=== PATIENT | male | born 1955 | race Two or more races ===

== ENCOUNTER 2024-05-14 14:04 | Inpatient (IN) | payer OTHER, MEDICARE ==
[~2024-05-14] VITALS: Ht 172.7 cm; Wt 108.3 kg
--- NOTE | 2024-05-14 14:35 | ED.PDOC ---
SOB-HPI HPI Comments 69y M who presents to the ED for chief complaint of flu-like symptoms. Pt states he has been having flu-like symptoms including body aches, cough, sore throat, and chills. Pt states he has also been having abdominal pain with associated nausea, vomiting and soft stools, and states he has been unable to keep anything down since last night. Pt states his abdomen feel full and states he is feeling bloated. Pt states he has history of liver disease(cirrhosis) with prior history of liver cancer in remission. Pt denies any recent sick contacts or changes to diet. Pt in the ED, has noted BP of 148/94 in the ED with noted heart rate of 112 with all other vitals in normal range. Pt otherwise denies diarrhea, fe ronald, dysuria, hematuria, chest pain shortness of breath, headache or dizziness. Pt otherwise denies any other symptoms at this time. Chief Complaint: Nausea/Vomiting Time Seen by MD: 14:31 [facility] Care Provider: [facility] Reviewed notes: Medications, Allergies Information Source: Patient Mode of Arrival: Ambulatory Brought in by: self Severity: Moderate Timing: Hours Past Medical History PAST MEDICAL HISTORY: Cancer, High Lipids, HTN, Liver Past Medical History (Other): DVT Surgical History (Other): liver resection Family History Family History: Unknown Social History Smoker: Non-Smoker Alcohol: Heavy Drugs: Denies Drug Use Lives In: Home Constitutional: reports: chills, fatigue, weakness, others (body aches) EENTM: denies: blurred vision, double vision, ear bleeding, ear discharge, ear drainage, ear pain, ear ringing, eye pain, eye redness, hearing loss, mouth pain, mouth swelling, nasal discharge, nose bleeding, nose congestion, nose pain, photophobia, tearing, throat pain, throat swelling, voice changes, others Respiratory: reports: cough; denies: hemoptysis, orthopnea, SOB at rest, shortness of breath, SOB with excertion, stridor, wheezing, others Cardiovascular: denies: chest pain, dizzy spells, diaphoresis, Dyspnea on exertion, edema, irregular heart beat, left arm pain, lightheadedness, palpi tations, PND, syncope, others Gastrointestinal: reports: abdominal pain, nausea, vomiting; denies: abdomen distended, blood streaked bowels, constipated, diarrhea, dysphagia, difficulty swallowing, hematemesis, melena, poor appetite, poor fluid intake, rectal bleeding, rectal pain, others Genitourinary: denies: burning, dysuria, flank pain, frequency, hematuria, incontinence, penile discharge, penile sore, pain, testicle pain, testicle swelling, urgency, others Neurological: denies: dizziness, fainting, headache, left sided numbness, left sided weakness, numbness, paresthesia, pre-existing deficit, right sided numbness, right sided weakness, seizure, speech problems, tingling, tremors, weakness, others Musculoskeletal: denies: back pain, gout, joint pain, joint swelling, muscle pain, muscle stiffness, neck pain, others Integumetry: denies: bruises, change in color, change in hair/nails, dryness, laceration, lesions, lumps, rash, wounds, others Allergic/Immunocompromised: denies: Difficulty Healing, Frequent Infections, Hives, Itching, others Hematologic/Lymphatic: denies: anemia, blood clots, easy bleeding, easy bruising, swollen glands, others Endocrine: denies: excessive hunger, excessive sweating, excessive thirst, excessive urination, flushing, intolerance to cold, intolerance to heat, unexplained weight gain, unexplained weight loss, others Psychiatric: denies: anxiety, bipolar disorder, depression, hopeless, panic disorder, schizophrenia, sleepless, suicidal, others All Other Systems: Reviewed and Negative Physical Exam General Appearance: No Apparent Distress, Obese HEENT: Other (Pupils symmetric, no facial asymmetry, moist mucous membranes, no pharyngeal erythema, edema, exudate or uvular deviation) Neck: Full Range of Motion, Normal Inspection Respiratory: Lungs Clear, No Accessory Muscle Use, No Respiratory Distress, Normal Breath Sounds Cardiovascular: No JVD, Regular Rate/Rhythm Breast Exam: Deferred Gastrointestinal: Soft, Tenderness (Generalized lower abdominal) Genitalia: Deferred Pelvic: Deferred Rectal: Deferred Extremities: Normal inspection, Normal range of motion, Non-tender, Pedal edema (Trace) Neurologic: Alert, Normal Affect, Normal Mood, Other (Ambulatory without difficulty, no gross focal deficit) Cerebellar Function: NOT DONE Reflexes: NOT DONE Skin: Dry, Normal Color, Warm Lymphatic: NOT DONE Was a procedure done? Was a procedure done?: No Differential Dx Differential Diagnosis: Bronchitis, Pneumonia, Pulmonary Embolism, Respiratory Distress, URI Comments COVID, influenza, other viral syndrome, UTI, colitis, diverticular disease, gastroenteritis, among others X-Ray, Labs, Meds, VS Vital Signs Date Time Temp Pulse Resp B/P (MAP) Pulse Ox O2 Delivery O2 Flow Rate FiO2 05/14/24 18:16 116 14 102/74 05/14/24 17:40 99.4 113 18 136/83 (100) 97 99.4 05/14/24 14:10 99.4 112 18 148/94 (112) 100 Lab Test 05/14/24 18:07 05/14/24 15:41 05/14/24 14:36 05/14/24 14:13 Range/Units Influenza Type A Antigen Negative Negative Influenza Type B Antigen Negative Negative SARS-CoV-2 Antigen (Rapid) Negative NEGATIVE Troponin I High Sensitivity 3 L 4 </=54 ng/L White Blood Count 11.5 H 4.4-10.8 10^3/uL Red Blood Count 5.69 4.5-5.90 10^6/uL Hemoglobin 16.8 13.5-17.5 g/dL Hematocrit 49.2 41.0-53.0 % Mean Corpuscular Volume 86.4 80.0-100.0 fL Mean Corpuscular Hemoglobin 29.6 28.0-32.0 pg Mean Corpuscular Hemoglobin Concent 34.3 32.0-36.0 g/dL Red Cell Distribution Width 15.5 H 11.8-14.3 % Platelet Count 197 140-450 10^3/uL Mean Platelet Volume 8.0 6.9-10.8 fL Neutrophils (%) (Auto) 89.2 H 37.0-80.0 % Lymphocytes (%) (Auto) 4.0 L 10.0-50.0 % Monocytes (%) (Auto) 5.3 0.0-12.0 % Eosinophils (%) (Auto) 1.0 0.0-7.0 % Basophils (%) (Auto) 0.5 0.0-2.0 % Neutrophils # (Auto) 10.3 H 1.6-8.6 10 ^3/uL Lymphocytes # (Auto) 0.5 0.4-5.4 10 ^3/uL Monocytes # (Auto) 0.6 0-1.3 10 ^3/uL Eosinophils # (Auto) 0.1 0-0.8 10 ^3/uL Basophils # (Auto) 0.1 0-0.2 10 ^3/uL Nucleated Red Blood Cells 0.0 % Sodium Level 140 136-145 mmol/L Potassium Level 4.7 3.5-5.1 mmol/L Chloride Level 107 98-107 mmol/L Carbon Dioxide Level 23 20-31 mmol/L Anion Gap 10 5-15 Blood Urea Nitrogen 17 9-23 mg/dL Creatinine 0.84 0.700-1.30 mg/dL Glomerular Filtration Rate Calc 95 >90 mL/min BUN/Creatinine Ratio 20.2 H 10.0-20.0 Serum Glucose 125 H 74-106 mg/dL Calcium Level 10.1 8.7-10.4 mg/dL Total Bilirubin 2.3 H 0.2-1.0 mg/dL Aspartate Amino Transferase (AST) 35 13-40 U/L Alanine Aminotransferase (ALT) 27 7-40 U/L Alkaline Phosphatase 85 46-116 U/L B-Type Natriuretic Peptide 55.51 0-100 pg/mL Total Protein 7.0 5.7-8.2 g/dL Albumin 4.5 3.2-4.8 g/dL Urine Color Yellow Yellow Urine Clarity Clear Clear Urine pH 7.0 5.0-9.0 Urine Specific [place] 1.023 1.001-1.035 Urine Protein Trace H Negative Urine Ketones Negative Negative Urine Blood Negative Negative /uL Urine Nitrite Negative Negative Urine Bilirubin Negative Negative Urine Urobilinogen Normal Negative mg/dL Urine Leukocyte Esterase Negative Negative /uL Urine RBC <1 0 - 3 /hpf Urine WBC 1 0 - 3 /hpf Urine Squamous Epithelial Cells Few <5 /hpf Urine Bacteria None seen None Seen /hpf Urine Mucus Few None Seen Urine Glucose Normal Normal mg/dL Current Medications Medications (Trade) Dose Ordered Sig/Jareth Route Start Time Stop Time Status Last Admin Sodium Chloride 500 ml @ 500 mls/hr Q1H ONCE IV 05/14/24 14:30 05/14/24 15:29 DC 05/14/24 18:10 Ondansetron HCl (Zofran) 4 mg ONCE ONCE IV 05/14/24 14:30 05/14/24 14:31 DC 05/14/24 18:13 Morphine Sulfate 4 mg ONCE ONCE IV 05/14/24 14:30 05/14/24 14:31 DC 05/14/24 18:[address] [address] Ph: [phone] DIAGNOSTIC IMAGING Diagnostic Imaging Report : [id number] Signed PATIENT: GONZALO KAUFMAN ACCT: [id number] UNIT: [id number] : 1955 LOC: ER ROOM / BED: / AGE / SEX: 69 / M ADM STATUS: REG ER SERVICE 23 ORDERING PHYSICIAN: KALINA CURTIS MD PROCEDURE(s): CXRP - CHEST PORTABLE REASON: cough ORDER NUMBER(s): [id number], ACCESSION NUMBER(s): [id number] CHEST RADIOGRAPH Indication: cough Technique: Single frontal view of the chest was obtained Comparison: None FINDINGS: Lines and Tubes: None Lungs: No focal consolidation. Pleura: No effusion. No pneumothorax. Cardiomediastinal contours: Unremarkable Bones: No acute osseous abnormality. IMPRESSION: No acute cardiopulmonary disease. ATED BY: LEONARDO GOSS MD DICTATED DATE/TIME: 05/14/24 150 SIGNED BY: LEONARDO GOSS MD SIGNED DATE/TIME: 05/14/24 150 CC: [id number] Ph: [phone] DIAGNOSTIC IMAGING Diagnostic Imaging Report : [id number] Signed PATIENT: GONZALO KAUFMAN ACCT: [id number] UNIT: [id number] : 1955 LOC: ER ROOM / BED: / AGE / SEX: 69 / M ADM STATUS: REG ER SERVICE 23 ORDERING PHYSICIAN: KALINA CURTIS MD PROCEDURE(s): ABPL - CT AB PEL WO CON-NO ORAL OR IV REASON: mid/low abd pain, n/v ORDER NUMBER(s): [id number], ACCESSION NUMBER(s): [id number] Exam: CT CT AB PEL WO CON-NO ORAL OR IV History: mid/low abd pain, n/v Comparison Study: None Technique: Multidetector spiral CT of the abdomen and pelvis was performed from lung bases to pubic symphysis. Imaging was performed without IV contrast. Axial, coronal and sagittal multiplanar reformats were obtained from the axial data set by the technologist. Radiation dose : Abdomen/Pelvis: CTDIvol 22 mGy, DLP 1300.31 mGy*cm. Findings: Evaluation of solid organs is limited due to lack of intravenous contrast use. Lung Bases: No acute or significant lung base finding. Normal heart size. No pleural or pericardial effusion. Liver: Cirrhotic liver morphology. Multiple right hepatic liver masses, largest measuring up to 36 mm. Lesion in the dome of the liver May have previously been treated. Gallbladder and biliary Tree: Cholelithiasis noted without secondary findings of cholecystitis or biliary obstruction. Spleen: Unremarkable Pancreas: The pancreas is grossly normal in appearance. Adrenal Glands: Unremarkable Kidneys: Left renal cyst. No hydronephrosis. No nephrolithiasis. Bladder: Grossly unremarkable for degree of distention. Bowel: The stomach is grossly normal in appearance. Small bowel and colon are normal in caliber and distribution. The appendix is not visualized; however, no secondary findings of acute appendicitis identified. Ascites: Absent Lymphadenopathy: Shotty retroperitoneal and mesenteric lymphadenopathy. Abdominal wall and Mesentery: Unremarkable. Vasculature: Gastroesophageal varices noted. Pelvic Organs: Unremarkable Musculoskeletal: No aggressive focal bony lesions, acute fractures or disloc ation. IMPRESSION: 1. Cirrhotic liver morphology. Multiple liver masses which are incompletely evaluated without intravenous contrast. Recommend further evaluation with CT or MRI of the abdomen with contrast. Evidence of portal venous hypertension including gastroesophageal varices. Cholelithiasis. Left renal cyst. Radiation optimization: All CT scans at this facility use at least one of these dose optimization techniques: Automated exposure control mA and/or kV adjustment per patient size (includes targeted exams where dose is matched to clinical indication) or iterative reconstruction. HS:Y ATED BY: TAE GRULLON MD DICTATED DATE/TIME: 05/14/24 150 SIGNED BY: TAE GRULLON MD SIGNED DATE/TIME: 05/14/241505 CC: X-Ray, Labs, Meds, VS Comment 61-year-old male with a history of liver cirrhosis and liver cancer which patient states has been in remission, complaining of abdominal pain, nausea, vomiting, soft stools and inability to keep any food or liquids down Vitals remarkable for heart rate 112, BP 148/94 Exam remarkable for generalized lower abdominal tenderness to palpation without rebound or guarding CT abdomen and pelvis IMPRESSION: 1. Cirrhotic liver morphology. Multiple liver masses which are incompletely evaluated without intravenous contrast. Recommend further evaluation with CT or MRI of the abdomen with contrast. Evidence of portal venous hypertension including gastroesophageal varices. Cholelithiasis. Left renal cyst. CBC remarkable for WBC 11.5, differential shows a left shift, CMP remarkable for total bilirubin 2.3, no other abnormalities of acute significance, UA unremarkable Patient treated with the following in the ED: 500 cc 0.9 normal saline IV bolus, morphine 4 mg IV, Zofran 4 mg IV It is unclear whether the CT findings of multiple liver masses are chronic or a recurrence of previous cancer. Plan is to admit the patient for pain and emesis control, and possible oncology evaluation. Time of 1ST Reevaluation: 15:00 Reevaluation 1ST: Unchanged Patient Education/Counseling: Diagnosis, Treatment Family Education/Counseling: No Family Present Departure 1 Departure Time of Disposition: 20:49 Impression: Primary Impression: Abdominal pain Qualified Codes: R10.30 - Lower abdominal pain, unspecified Additional Impressions: Nausea and vomiting Qualified Codes: R11.2 - Nausea with vomiting, unspecified Liver masses Disposition: ADMITTED INPATIENT Admit to: Med Surg Condition: Fair Critical Care Note Critical Care Time?: No Stability Stability form required: No Heart Score Heart Score: Heart Score Response (Comments) Value History N/A 0 EKG N/A 0 Age N/A 0 Risk Factors N/A 0 Troponin N/A 0 Total 0 I personally scribed for KALINA CURTIS MD ([facility] on 05/14/24 at 14:35. Electronically submitted by Padmini Wang ([facility]). I personally scribed for KALINA CURTIS MD ([facility]) on 05/14/24 at 15:30. Electronically submitted by Padmini Wang ([employer]). KALINA CURTIS MD May 14, 2024 14:35
[2024-05-14 14:37] LABS: Urine Bacteria None Seen /hpf (None Seen)
[2024-05-14 14:47] LABS: Basophils # (auto) 0.1 10 ^3/uL (0-0.2); Basophils % (auto) 0.5 % (0.0-2.0); Eosinophils # (auto) 0.1 10 ^3/uL (0-0.8); Hematocrit 49.2 % (41.0-53.0); Hemoglobin 16.8 g/dL (13.5-17.5); Lymphocytes # (auto) 0.5 10 ^3/uL (0.4-5.4); Mean Corpuscular Hemoglobin 29.6 pg (28.0-32.0); Mean Corpuscular Hgb Conc. 34.3 g/dL (32.0-36.0); Mean Corpuscular Volume 86.4 fL (80.0-100.0); Monocytes # (auto) 0.6 10 ^3/uL (0-1.3); Monocytes % (auto) 5.3 % (0.0-12.0); Neutrophils # (auto) 10.3 10 ^3/uL (1.6-8.6); Neutrophils % (auto) 89.2 % (37.0-80.0); Platelet Count (auto) 197 10^3/uL (140-450); Red Blood Cells 5.69 10^6/uL (4.5-5.90); Red Cell Distribution Width 15.5 % (11.8-14.3); White Blood Cell 11.5 10^3/uL (4.4-10.8)
[2024-05-14 14:47] LABS: Urine Blood Negative /uL (Negative); Urine Clarity Clear (Clear); Urine Color Yellow (Yellow); Urine Mucus FEW (None Seen); Urine Protein, UAD TRACE (Negative); Urine Specific Gravity 1.023 (1.001-1.035); Urine Urobilinogen Normal (Negative); Urine WBC 1 /hpf (0 - 3)
[2024-05-14 15:04] LABS: Alanine Aminotransferase 27 U/L (7-40); Albumin 4.5 g/dL (3.2-4.8); Alkaline Phosphatase 85 U/L (46-116); Anion Gap 10 (5-15); Aspartate Aminotransferase 35 U/L (13-40); BUN/Creatinine Ratio 20.2 (10.0-20.0); Bilirubin, Total 2.3 mg/dL (0.2-1.0); Blood Urea Nitrogen 17 mg/dL (9-23); Calcium 10.1 mg/dL (8.7-10.4); Carbon Dioxide 23 mmol/L (20-31); Chloride 107 mmol/L (98-107); Glucose 125 mg/dL (74-106); Potassium 4.7 mmol/L (3.5-5.1); Sodium 140 mmol/L (136-145)
--- NOTE | 2024-05-14 15:08 | DVH ---
Exam: CT CT AB PEL WO CON-NO ORAL OR IV History: mid/low abd pain, n/v Comparison Study: None Technique: Multidetector spiral CT of the abdomen and pelvis was performed from lung bases to pubic symphysis. Imaging was performed without IV contrast. Axial, coronal and sagittal multiplanar reform ats were obtained from the axial data set by the technologist. Radiation dose : Abdomen/Pelvis: CTDIvol 22 mGy, DLP 1300.31 mGy*cm. Findings: Evaluation of solid organs is limited due to lack of intravenous contrast use. Lung Bases: No acute or significant lung base finding. Normal heart size. No pleural or pericardial effusion. Liver: Cirrhotic liver morphology. Multiple right hepatic liver masses, largest measuring up to 36 m m. Lesion in the dome of the liver May have previously been treated. Gallbladder and biliary Tree: Cholelithiasis noted without secondary findings of cholecystitis or elizabeth iary obstruction. Spleen: Unremarkable Pancreas: The pancreas is grossly normal in appearance. Adrenal Glands: Unremarkable Kidneys: Left renal cyst. No hydronephrosis. No nephrolithiasis. Bladder: Grossly unremarkable for degree of distention. Bowel: The stomach is grossly normal in appearance. Small bowel and colon are normal in caliber and d istribution. The appendix is not visualized; however, no secondary findings of acute appendicitis id entified. Ascites: Absent Lymphadenopathy: Shotty retroperitoneal and mesenteric lymphadenopathy. Abdominal wall and Mesentery: Unremarkable. Vasculature: Gastroesophageal varices noted. Pelvic Organs: Unremarkable Musculoskeletal: No aggressive focal bony lesions, acute fractures or dislocation. IMPRESSION: 1. Cirrhotic liver morphology. Multiple liver masses which are incompletely evaluated without intrav enous contrast. Recommend further evaluation with CT or MRI of the abdomen with contrast. Evidence o f portal venous hypertension including gastroesophageal varices. Cholelithiasis. Left renal cyst. Radiation optimization: All CT scans at this facility use at least one of these dose optimization brandin hniques: Automated exposure control mA and/or kV adjustment per patient size (includes targeted exams where dose is matched to clinical indication) or iterative reconstruction. HS:Y
--- NOTE | 2024-05-14 15:10 | DVH ---
CHEST RADIOGRAPH Indication: cough Technique: Single frontal view of the chest was obtained Comparison: None FINDINGS: Lines and Tubes: None Lungs: No focal consolidation. Pleura: No effusion. No pneumothorax. Cardiomediastinal contours: Unremarkable Bones: No acute osseous abnormality. IMPRESSION: No acute cardiopulmonary disease.
[2024-05-14] MEDS: SODIUM CHLORIDE 0.9% 500 ML IV ONE (18:10)
[2024-05-14] MEDS: ONDANSETRON HCL 4 MG/2 ML VIAL IV ONE (18:13)
[2024-05-14] MEDS: MORPHINE SULFATE 4 MG/ML SYR/VIAL IV ONE (18:16)
[2024-05-14 19:46] LABS: Rapid Influenza A Negative (Negative); Rapid Influenza B Negative (Negative)
[2024-05-14 19:47] LABS: COVID19 ANTIGEN SOFIA FIA NEGATIVE (NEGATIVE)
[2024-05-14] MEDS ORDERED: MORPHINE SULFATE INJ 2 MG/ml SYRG IV PRN (23:30)
[2024-05-14] MEDS ORDERED: ONDANSETRON HCL 4 MG/2 ML VIAL IV PRN (23:30)
[2024-05-14] MEDS ORDERED: DOCUSATE SOD 100 MG CAP PO PRN (23:30)
[2024-05-14] MEDS ORDERED: ACETAMINOPHEN 325 MG TAB PO PRN (23:30)
[2024-05-14] MEDS ORDERED: HYDROcodone-ACET 5/325MG TAB PO PRN (23:30)
--- NOTE | 2024-05-15 00:10 | DVHHP2 ---
History of Present Illness Reason for Visit: Lower abdominal pain, unspecified History of Present Illness The patient is a 69-year-old male with past medical history of liver cancer in remission, hyperlipidemia, DVT, and hypertension who presented to [facility] ED with complaint of lower abdominal pain. Patient reports symptoms progressively get worse with body ache, cough, sore throat, chills, associated nausea, vomiting, feeling bloated, getting worse that prompted this visit. Patient was seen and evaluated in the ED, laboratory data shows WBC 11.5, yamilex telets 197, sodium 140, potassium 4.7, BUN 17, creatinine 0.84, glucose 125, total bilirubin 2.3, BNP 55.51, troponin 4. Abdomen/pelvis CT revealing cirrhotic liver morphology, multiple liver masses which incompletely evaluated without intravenous contrast. Please see medication orders section in the computer. On my assessment, patient denies chest pain, no headache, no dizziness, no diaphoresis, no shortness of breaths, no diarrhea, no nausea, no vomiting, no fever, no chills. Patient was admitted for further evaluation and medical management. Past Medical History Liver cancer, High Lipids, HTN, DVT Past Surgical History Liver resection Family History Reviewed, noncontributory to the management of this case. Past Social History The patient lives at home, denies smoking, alcohol or illicit drugs abuse. Review of Systems Constitutional: Yes: Chills, Weakness, Other (Fatigue); No: Fever, Sweats, Malaise Eyes: No: Pain, Vision change, Conjunctivae inflammation, Eyelid inflammation, Other, Redness ENT: No: Ear pain, Ear discharge, Nose pain, Nose discharge, Nose congestion, Mouth pain, Mouth swelling, Throat pain, Throat swelling, Other Respiratory: Cough; No: Dry, Shortness of breath, SOB with excertion, Wheezing, Hemoptysis, Pleuritic Pain, Sputum, Wheezing, Other Cardiovascular: No: Chest Pain, Palpitations, Orthopnea, Paroxysmal Noc. Dyspnea, Edema, Lt Headedness, Other Gastrointestinal: Nausea, Vomiting, Abdominal Pain; No: Diarrhea, Constipation, Melena, Hematochezia, Other Genitourinary: No Dysuria, No Frequency, No Incontinence, No Hematuria, No Retention, No Other Musculoskeletal: other (Body aches); No: neck pain, shoulder pain, arm pain, back pain, hand pain, leg pain, foot pain Skin: No: Rash, Lesions, Jaundice, Bruising, Other Neurological: No: Weakness, Numbness, Incoordination, Change in speech, Confusion, Seizures, Other Allergies: Coded Allergies: NO KNOWN ALLERGIES (Unverified , 05/14/24) Medications Current Medications Medications Dose Ordered Sig/Jareth Route Start Time Stop Time Status Last Admin Dose Admin Sodium Chloride 10 ml Q8HR IV 05/15/24 06:00 Acetaminophen/ Hydrocodone Bitart 1 tab Q4HP PRN PO 05/14/24 23:30 Ondansetron HCl 4 mg Q4HP PRN IV 05/14/24 23:30 Docusate Sodium 100 mg BIDPRN PRN PO 05/14/24 23:30 Acetaminophen 650 mg Q6HP PRN PO 05/14/24 23:30 Morphine Sulfate 2 mg Q4HPRN PRN IV 05/14/24 23:30 Pantoprazole Sodium 40 mg DAILY IV 05/15/24 10:00 Exam Vital Signs Vital Signs Date Time Temp Pulse Resp B/P (MAP) Pulse Ox O2 Delivery O2 Flow Rate FiO2 05/14/24 21:24 101 20 120/80 05/14/24 17:40 99.4 97 99.4 General Appearance: Alert, Oriented X3, Cooperative, No acute distress HEENT: Atraumatic, PERRLA, EOMI, Mucous membr. moist/pink Respiratory: Clear to auscultation, Normal air movement Cardiovascular: Regular rate, Normal S1, Normal S2, No murmurs Abdominal: Normal bowel sounds, Soft, No hepatospenomegaly, No masses, Other (Reports tenderness) Extremities: No clubbing, No cyanosis, No edema, Normal pulses Skin: No rashes, No breakdown, No significant lesion Neuro: Normal gait, Normal speech, Strength at 5/5 X4 ext, Normal tone, Sensation intact, Cranial nerves 3-12 NL, Reflexes 2+ Psych/Mental Status: Mental status NL, Mood NL Labs/Xrays Labs Test 05/14/24 18:07 05/14/24 15:41 05/14/24 14:36 05/14/24 14:13 Range/Units Influenza Type A Antigen Negative Negative Influenza Type B Antigen Negative Negative SARS-CoV-2 Antigen (Rapid) Negative NEGATIVE Troponin I High Sensitivity 3 L </=54 ng/L White Blood Count 11.5 H 4.4-10.8 10^3/uL Red Blood Count 5.69 4.5-5.90 10^6/uL Hemoglobin 16.8 13.5-17.5 g/dL Hematocrit 49.2 41.0-53.0 % Mean Corpuscular Volume 86.4 80.0-100.0 fL Mean Corpuscular Hemoglobin 29.6 28.0-32.0 pg Mean Corpuscular Hemoglobin Concent 34.3 32.0-36.0 g/dL Red Cell Distribution Width 15.5 H 11.8-14.3 % Platelet Count 197 140-450 10^3/uL Mean Platelet Volume 8.0 6.9-10.8 fL Neutrophils (%) (Auto) 89.2 H 37.0-80.0 % Lymphocytes (%) (Auto) 4.0 L 10.0-50.0 % Monocytes (%) (Auto) 5.3 0.0-12.0 % Eosinophils (%) (Auto) 1.0 0.0-7.0 % Basophils (%) (Auto) 0.5 0.0-2.0 % Neutrophils # (Auto) 10.3 H 1.6-8.6 10 ^3/uL Lymphocytes # (Auto) 0.5 0.4-5.4 10 ^3/uL Monocytes # (Auto) 0.6 0-1.3 10 ^3/uL Eosinophils # (Auto) 0.1 0-0.8 10 ^3/uL Basophils # (Auto) 0.1 0-0.2 10 ^3/uL Nucleated Red Blood Cells 0.0 % Sodium Level 140 136-145 mmol/L Potassium Level 4.7 3.5-5.1 mmol/L Chloride Level 107 98-107 mmol/L Carbon Dioxide Level 23 20-31 mmol/L Anion Gap 10 5-15 Blood Urea Nitrogen 17 9-23 mg/dL Creatinine 0.84 0.700-1.30 mg/dL Glomerular Filtration Rate Calc 95 >90 mL/min BUN/Creatinine Ratio 20.2 H 10.0-20.0 Serum Glucose 125 H 74-106 mg/dL Calcium Level 10.1 8.7-10.4 mg/dL Total Bilirubin 2.3 H 0.2-1.0 mg/dL Aspartate Amino Transferase (AST) 35 13-40 U/L Alanine Aminotransferase (ALT) 27 7-40 U/L Alkaline Phosphatase 85 46-116 U/L B-Type Natriuretic Peptide 55.51 0-100 pg/mL Total Protein 7.0 5.7-8.2 g/dL Albumin 4.5 3.2-4.8 g/dL Urine Color Yellow Yellow Urine Clarity Clear Clear Urine pH 7.0 5.0-9.0 Urine Specific [place] 1.023 1.001-1.035 Urine Protein Trace H Negative Urine Ketones Negative Negative Urine Blood Negative Negative /uL Urine Nitrite Negative Negative Urine Bilirubin Negative Negative Urine Urobilinogen Normal Negative mg/dL Urine Leukocyte Esterase Negative Negative /uL Urine RBC <1 0 - 3 /hpf Urine WBC 1 0 - 3 /hpf Urine Squamous Epithelial Cells Few <5 /hpf Urine Bacteria None seen None Seen /hpf Urine Mucus Few None Seen Urine Glucose Normal Normal mg/dL PATIENT: GONZALO KAUFMAN ACCT: [id number] UNIT: [id number] : 1955 LOC: ER ROOM / BED: / AGE / SEX: 69 / M ADM STATUS: REG ER SERVICE 1424 ORDERING PHYSICIAN: KALINA CURTIS MD PROCEDURE(s): ABPL - CT AB PEL WO CON-NO ORAL OR IV REASON: mid/low abd pain, n/v ORDER NUMBER(s): [id number], ACCESSION NUMBER(s): [id number] Exam: CT CT AB PEL WO CON-NO ORAL OR IV History: mid/low abd pain, n/v Comparison Study: None Technique: Multidetector spiral CT of the abdomen and pelvis was performed from lung bases to pubic symphysis. Imaging was performed without IV contrast. Axial, coronal and sagittal multiplanar reformats were obtained from the axial data set by the technologist. Radiation dose : Abdomen/Pelvis: CTDIvol 22 mGy, DLP 1300.31 mGy*cm. Findings: Evaluation of solid organs is limited due to lack of intravenous contrast use. Lung Bases: No acute or significant lung base finding. Normal heart size. No pleural or pericardial effusion. Liver: Cirrhotic liver morphology. Multiple right hepatic liver masses, largest measuring up to 36 mm. Lesion in the dome of the liver May have previously been treated. Gallbladder and biliary Tree: Cholelithiasis noted without secondary findings of cholecystitis or biliary obstruction. Spleen: Unremarkable Pancreas: The pancreas is grossly normal in appearance. Adrenal Glands: Unremarkable Kidneys: Left renal cyst. No hydronephrosis. No nephrolithiasis. Bladder: Grossly unremarkable for degree of distention. Bowel: The stomach is grossly normal in appearance. Small bowel and colon are normal in caliber and distribution. The appendix is not visualized; however, no secondary findings of acute appendicitis identified. Ascites: Absent Lymphadenopathy: Shotty retroperitoneal and mesenteric lymphadenopathy. Abdominal wall and Mesentery: Unremarkable. Vasculature: Gastroesophageal varices noted. Pelvic Organs: Unremarkable Musculoskeletal: No aggressive focal bony lesions, acute fractures or dislocation. IMPRESSION: 1. Cirrhotic liver morphology. Multiple liver masses which are incompletely evaluated without intravenous contrast. Recommend further evaluation with CT or MRI of the abdomen with contrast. Evidence of portal venous hypertension including gastroesophageal varices. Cholelithiasis. Left renal cyst. ORDERING PHYSICIAN: KALINA CURTIS MD PROCEDURE(s): CXRP - CHEST PORTABLE REASON: cough ORDER NUMBER(s): [id number], ACCESSION NUMBER(s): [id number] CHEST RADIOGRAPH Indication: cough Technique: Single frontal view of the chest was obtained Comparison: None FINDINGS: Lines and Tubes: None Lungs: No focal consolidation. Pleura: No effusion. No pneumothorax. Cardiomediastinal contours: Unremarkable Bones: No acute osseous abnormality. IMPRESSION: No acute cardiopulmonary disease. Assessment/Plan Assessment/Plan Acute abdominal pain Lower abdominal pain, unspecified Liver masses Leukocytosis, unspecified Nausea with vomiting, unspecified Plan 1. Admit to med surge unit 2. Breathing treatment 3. Pain control management 4. IV antibiotic management 5. Management of fluids and electrolytes 6. Consultation for GI/hospitalist 7. Diagnostic test abdomen/pelvis CT 8. DVT prophylaxis-on SCDs 9. Repeat labs CBC, CMP in a.m. 10. Home medication reviewed and reconciled 11. Continue with current medical management 12. Treatment plan discussed with patient and RN. Patient verbalized understanding. Plan discussed with: Patient, Other (RN) My Orders Orders - MANDY KUMARI DNP Procedure Category Date Status Time Allergies CB 05/14/24 In Process 23:20 Code Status CODE 05/14/24 Transmitted 23:20 Sodium Chloride Lock PHA 05/15/24 In Process (Saline Lock Ns) 06:00 Oxygen Per Hour RT 05/14/24 Transmitted 23:20 Hydrocodone-Acet PHA 05/14/24 In Process 5/325mg Tab ([place] 23:30 Ondansetron Hcl PHA 05/14/24 In Process (Zofran) 23:30 Docusate Sodium PHA 05/14/24 In Process Capsule (Colace 23:30 Complete Blood Count LAB 05/15/24 Logged 04:00 Comprehensive LAB 05/15/24 Logged Metabolic Panel 04:00 Condition: Serious CB 05/14/24 In Process 23:20 Acetaminophen Tablet PHA 05/14/24 In Process (Tylenol Tablet) 23:30 Clear Liq Diet DIET 05/15/24 Transmitted Breakfast Bedrest With Bathroom CB 05/14/24 In Process Privileg 23:20 Morphine Sulfate PHA 05/14/24 In Process Injection 23:30 Sequential CB 05/14/24 In Process Compression Device Pantoprazole PHA 05/15/24 In Process (Protonix) 10:00 Problem List: (1) Acute abdominal pain (2) Leukocytosis, unspecified (3) Nausea with vomiting, unspecified (4) Liver masses (5) Lower abdominal pain, unspecified Date of Service: May 14, 2024 Billing Provider: MANDY KUMARI DNP Common Visit Codes: [id number] INP/OBS CARE (HIGH) MANDY KUMARI DNP May 15, 2024 00:10
[2024-05-15] MEDS ORDERED: NITROGLYCERIN 0.4 MG SL TAB SL PRN (00:15)
[2024-05-15] MEDS ORDERED: MORPHINE SULFATE INJ 2 MG/ml SYRG IV PRN (00:15)
[2024-05-15] MEDS: PANTOPRAZOLE 40 MG/10 ML VIAL INJ IV ONE (00:44)
[2024-05-15 02:02] VITALS: PULSE 81; RESP 14; O2SAT 97
[2024-05-15] MEDS: cefTRIAXone 1GM/50ML D5W 50 ML IV ONE (02:29)
[2024-05-15] MEDS: SODIUM CHLOR 0.9% PF (SALINE LOCK) 10ML VIAL/SYR IV SCH (06:09)
[2024-05-15 08:59] VITALS: PULSE 103; RESP 16; O2SAT 95
[2024-05-15] MEDS ORDERED: PANTOPRAZOLE 40 MG/10 ML VIAL INJ IV SCH (10:00)
[2024-05-15] MEDS: PANTOPRAZOLE 40 MG/10 ML VIAL INJ IV SCH (11:43)
--- NOTE | 2024-05-15 12:23 | DVHPN2 ---
Assessment/Plan Assessment/Plan Progress note Subjective 69-year-old male admitted for lower abdominal pain. Patient follow with [facility], currently on transplant list, evaluated and had prior EGD couple of years back with varices, nonbleeding, known liver cancer status post ablation and embolization, cirrhosis. Objective Physical exam Alert, oriented x3 PERRLA Mid neck JVD Clear breath sounds bilaterally S1-S2 regular rate and rhythm no murmur Abdomen soft, lower quadrant tenderness, no mirlande shifting dullness Moving all four extremities No lower extremity edema Lab WBC 11.5 T bili 2.3 Imaging Chest x-ray clear CT abdomen and pelvis showing cirrhosis, varices, portal hypertension, cholelithiasis, liver mass Assessment and plan Cirrhosis, on transplant list History of esophageal varices Abdominal pain likely viral/noninfectious GE Low suspicion of cholecystitis or SBP History of clot? On Xarelto Empirically covered with ceftriaxone, we will continue for now Collateral acquired from [place], low suspicion of bleeding right now Bowel rest IV hydration Monitor LFT Pain management Resume home meds Replete electrolytes Diet advanced as tolerated DVT prophylaxis on Xarelto Plan discussed with: Patient Date of Service: May 15, 2024 Billing Provider: JOSE SAHNI MD Common Visit Codes: [id number] INP/OBS CARE(HIGH) JOSE SAHNI MD May 15, 2024 12:23
--- NOTE | 2024-05-15 13:38 | DVH ---
INDICATION: ascites TECHNIQUE: Multiple real-time sonographic images were obtained of the right upper quadrant. COMPARISON: None FINDINGS: The liver demonstrates heterogeneous echotexture without focal mass lesions. The liver andrew ures 13 cm. There is an indeterminate echogenic mass measuring 2.8 cm. There is no intrahepatic or e xtrahepatic ductal dilatation. The common duct measures 5 mm. There are gallstones. The gallbladder wall measures 2 mm and is within normal limits. The right kidney measures 12.1 cm. The right kidney is normal in contour, size, and shape. The echo genicity is normal. There is no hydronephrosis. Incidentally seen splenomegaly with the spleen measu ring 17 cm. The pancreas is not well visualized due to overlying bowel gas. IMPRESSION: Findings suggestive of hepatic cirrhosis. Indeterminate echogenic mass measuring 2.8 cm. Recommend f urther evaluation CT or MRI multiphase liver protocol. Cholelithiasis without sonographic evidence of acute cholecystitis.
[2024-05-15 20:00] VITALS: BP 172/90; PULSE 98; RESP 18; TEMP 98; O2SAT 95
[2024-05-15] MEDS ORDERED: PROPRANOLOL HCL 20 MG TAB PO SCH (22:00)
[2024-05-16] MEDS ORDERED: cefTRIAXone 1GM/50ML D5W 50 ML IV SCH (09:00)
[2024-05-16] MEDS ORDERED: PATIENTS OWN MEDICATION PO SCH (10:00)
== END 2024-05-15 20:30 | disposition left against medical advice (07) | DRG 392 ==
LOC: ER 14:04 → OVERFLOW 05-15 00:10 → ER 05-15 00:10 → OVERFLOW 05-15 20:30
PROVIDERS: ADMIT Nurse Practitioner Family; ATTEND Student in an Organized Health Care Education/Training Program
DX: A08.4 Viral intestinal infection, unspecified (principal); K74.60 Unspecified cirrhosis of liver; D72.829 Elevated white blood cell count, unspecified; R16.0 Hepatomegaly, not elsewhere classified; Z53.29 Procedure and treatment not carried out because of patient's decision for other reasons; E78.5 Hyperlipidemia, unspecified; I10 Essential (primary) hypertension; Z85.05 Personal history of malignant neoplasm of liver; Z76.82 Awaiting organ transplant status
CPT/HCPCS: 71045; 74176; 76705; G0378; J2405; J2470